=== PATIENT | female | born 1970 | race Two or more races ===

== ENCOUNTER 2024-05-24 17:06 | Inpatient (IN) | payer MEDICAID ==
[~2024-05-24] VITALS: Ht 160 cm; Wt 84.0 kg
[2024-05-24] MEDS: cloNIDine HCL 0.1 MG TAB PO ONE (17:33)
[2024-05-24] MEDS: cloNIDine HCL 0.1 MG TAB ONE (17:33)
[2024-05-24 18:31] LABS: Alanine Aminotransferase 42 U/L (7-40); Albumin 4.7 g/dL (3.2-4.8); Alkaline Phosphatase 83 U/L (46-116); Anion Gap 7 (5-15); Aspartate Aminotransferase 35 U/L (13-40); Basophils # (auto) 0 10 ^3/uL (0-0.2); Basophils % (auto) 0.5 % (0.0-2.0); Bilirubin, Total 1.9 mg/dL (0.2-1.0); Blood Urea Nitrogen 9 mg/dL (9-23); Calcium 9.8 mg/dL (8.7-10.4); Carbon Dioxide 28 mmol/L (20-31); Chloride 106 mmol/L (98-107); Eosinophils # (auto) 0 10 ^3/uL (0-0.8); Eosinophils % (auto) 0.3 % (0.0-7.0); Glucose 130 mg/dL (74-106); Hematocrit 39.5 % (36.0-46.0); Lipase 33 U/L (12-53); Lymphocytes # (auto) 2.3 10 ^3/uL (0.4-5.4); Lymphocytes % (auto) 31.4 % (10.0-50.0); Mean Corpuscular Hgb Conc. 32.9 g/dL (32.0-36.0); Mean Corpuscular Volume 94.4 fL (80.0-100.0); Monocytes # (auto) 0.5 10 ^3/uL (0-1.3); Monocytes % (auto) 6.9 % (0.0-12.0); Neutrophils # (auto) 4.5 10 ^3/uL (1.6-8.6); Neutrophils % (auto) 60.9 % (37.0-80.0); Nucleated Red Blood Cells % 0.2 %; Platelet Count (auto) 297 10^3/uL (140-450); Potassium 3.3 mmol/L (3.5-5.1); Red Blood Cells 4.19 10^6/uL (4.0-5.20); Red Cell Distribution Width 16.2 % (11.8-14.3); Sodium 141 mmol/L (136-145); Total Protein 7.3 g/dL (5.7-8.2); White Blood Cell 7.4 10^3/uL (4.4-10.8)
[2024-05-24] MEDS: SODIUM CHLORIDE 0.9% 1,000 ML IVB ONE (19:56)
[2024-05-24] MEDS: PROCHLORPERAZINE EDISYLATE 5 MG/ML 2ML VIAL IV ONE (19:59)
[2024-05-24] MEDS: PANTOPRAZOLE 40 MG/10 ML VIAL INJ IV ONE (19:59)
[2024-05-24] MEDS: MORPHINE SULFATE 4 MG/ML SYR/VIAL IV ONE (19:59)
[2024-05-24 20:13] LABS: Urine Bacteria FEW /hpf (None Seen); Urine Blood Negative /uL (Negative); Urine Clarity Clear (Clear); Urine Color Yellow (Yellow); Urine Mucus FEW (None Seen); Urine Protein, UAD 3+ (Negative); Urine Specific Gravity 1.027 (1.001-1.035); Urine Urobilinogen 6 mg/dL (Negative); Urine WBC 3 /hpf (0 - 5)
[2024-05-24] MEDS: ONDANSETRON HCL 4 MG/2 ML VIAL IV ONE (20:36)
[2024-05-24] MEDS ORDERED: HYDROcodone-ACET 5/325MG TAB PO PRN (23:00)
[2024-05-24] MEDS ORDERED: ACETAMINOPHEN 325 MG TAB PO PRN (23:00)
[2024-05-24] MEDS ORDERED: ONDANSETRON HCL 4 MG/2 ML VIAL IV PRN (23:00)
[2024-05-24] MEDS ORDERED: TEMAZEPAM 15 MG CAP PO PRN (23:00)
[2024-05-24] MEDS: POTASSIUM CHL 20 Meq TABLET PO ONE (23:12)
[2024-05-25] VITALS (7 sets, daily range): BP systolic 111–180; BP diastolic 72–117; PULSE 6–76; RESP 16–18; TEMP 97.3–98.1; O2SAT 92–98
[2024-05-25] MEDS ORDERED: hydrALAZINE HCL 20 MG/ML VL IV ONE (03:15)
[2024-05-25 03:34] LABS: Basophils # (auto) 0 10 ^3/uL (0-0.2); Basophils % (auto) 0.4 % (0.0-2.0); Eosinophils # (auto) 0 10 ^3/uL (0-0.8); Eosinophils % (auto) 0.9 % (0.0-7.0); Hematocrit 36.5 % (36.0-46.0); Lymphocytes # (auto) 2.2 10 ^3/uL (0.4-5.4); Lymphocytes % (auto) 43.1 % (10.0-50.0); Mean Corpuscular Hemoglobin 31.7 pg (28.0-32.0); Mean Corpuscular Volume 96.1 fL (80.0-100.0); Monocytes # (auto) 0.5 10 ^3/uL (0-1.3); Monocytes % (auto) 9.1 % (0.0-12.0); Neutrophils # (auto) 2.4 10 ^3/uL (1.6-8.6); Neutrophils % (auto) 46.5 % (37.0-80.0); Nucleated Red Blood Cells % 0.2 %; Platelet Count (auto) 229 10^3/uL (140-450); Red Cell Distribution Width 16.7 % (11.8-14.3); White Blood Cell 5.2 10^3/uL (4.4-10.8)
[2024-05-25 03:52] LABS: Anion Gap 7 (5-15); Carbon Dioxide 30 mmol/L (20-31); Chloride 107 mmol/L (98-107); Potassium 3.5 mmol/L (3.5-5.1); Sodium 144 mmol/L (136-145)
[2024-05-25 03:53] LABS: Calcium 9.3 mg/dL (8.7-10.4)
[2024-05-25 03:58] LABS: BUN/Creatinine Ratio 7.6 (10.0-20.0); Blood Urea Nitrogen 9 mg/dL (9-23); Glucose 89 mg/dL (74-106)
[2024-05-25] MEDS: PANTOPRAZOLE 40 MG TAB PO SCH (06:18)
[2024-05-25] MEDS: cloNIDine HCL 0.1 MG TAB PO PRN (07:08)
[2024-05-25] MEDS ORDERED: ALBU108A5 IN (08:23)
[2024-05-25] MEDS ORDERED: ALLO100T PO (08:23)
[2024-05-25] MEDS ORDERED: ASPI-543 PO (08:23)
[2024-05-25] MEDS ORDERED: CARV6.2517 PO (08:23)
[2024-05-25] MEDS ORDERED: FERR325T24 PO (08:23)
[2024-05-25] MEDS ORDERED: CHLO25TA2 PO (08:23)
[2024-05-25] MEDS ORDERED: ERGO1CAP23 PO (08:23)
[2024-05-25] MEDS ORDERED: ATOR20TA50 PO (08:23)
[2024-05-25] MEDS: CARVEDILOL 3.125 MG TAB PO SCH (09:13)
[2024-05-25] MEDS: ALLOPURINOL 100 MG TAB PO SCH (09:14)
[2024-05-25] MEDS: amLODIPine BESYLATE 5 MG TAB PO SCH (09:14)
[2024-05-25] MEDS ORDERED: AMLO1TAB22 PO (09:28)
[2024-05-25] MEDS: amLODIPine BESYLATE 5 MG TAB PO ONE (15:02)
[2024-05-25] MEDS: BENAZEPRIL HCL 10 MG TAB PO ONE (15:03)
[2024-05-25] MEDS: CHLORTHALIDONE 25 MG TAB PO ONE (15:04)
[2024-05-26] VITALS (7 sets, daily range): BP systolic 118–153; BP diastolic 77–99; PULSE 50–70; RESP 16–20; TEMP 36.7; O2SAT 92–99
[2024-05-26 06:35] LABS: Anion Gap 9 (5-15); Carbon Dioxide 26 mmol/L (20-31); Chloride 106 mmol/L (98-107); Potassium 3.4 mmol/L (3.5-5.1); Sodium 141 mmol/L (136-145)
[2024-05-26 06:36] LABS: Calcium 9.5 mg/dL (8.7-10.4)
[2024-05-26 06:41] LABS: BUN/Creatinine Ratio 6.4 (10.0-20.0); Blood Urea Nitrogen 8 mg/dL (9-23); Glucose 90 mg/dL (74-106)
[2024-05-26] MEDS: POTASSIUM EFFERVESENT TAB 25 MEQ PO ONE (11:27)
[2024-05-26] MEDS: amLODIPine BESYLATE 5 MG TAB PO SCH (11:29)
[2024-05-26] MEDS: BENAZEPRIL HCL 10 MG TAB PO SCH (11:30)
[2024-05-26] MEDS: CHLORTHALIDONE 25 MG TAB PO SCH (11:39)
[2024-05-26 14:21] LABS: Chloride 105 mmol/L (98-107); Sodium 140 mmol/L (136-145)
[2024-05-26 14:22] LABS: Anion Gap 6 (5-15); Carbon Dioxide 29 mmol/L (20-31)
[2024-05-26 14:23] LABS: Calcium 9.6 mg/dL (8.7-10.4)
[2024-05-26 14:27] LABS: BUN/Creatinine Ratio 9.9 (10.0-20.0); Blood Urea Nitrogen 11 mg/dL (9-23); Glucose 96 mg/dL (74-106)
[2024-05-26] MEDS: SODIUM CHLORIDE 0.9% 1,000 ML IV ONE (15:18)
== END 2024-05-26 17:50 | disposition home or self-care (01) | DRG 249 ==
LOC: ER 17:06 → OVERFLOW 23:03 → WEST WING 05-25 05:20
PROVIDERS: ADMIT Nurse Practitioner; ATTEND Student in an Organized Health Care Education/Training Program
DX: K52.9 Noninfective gastroenteritis and colitis, unspecified (principal); N17.0 Acute kidney failure with tubular necrosis; I50.9 Heart failure, unspecified; I11.0 Hypertensive heart disease with heart failure; E87.6 Hypokalemia; E86.0 Dehydration; E78.5 Hyperlipidemia, unspecified; M10.9 Gout, unspecified; R80.9 Proteinuria, unspecified; Z86.73 Personal history of transient ischemic attack (TIA), and cerebral infarction without residual deficits
CPT/HCPCS: 36415; 74176; 76705; 80048; 80053; 81001; 83690; 85025; 93005; 96374; 96375; G0378; J2405; J2470

== ENCOUNTER 2025-07-15 10:25 | Inpatient (IN) | payer MEDICAID ==
[~2025-07-15] VITALS: Ht 162.6 cm; Wt 87.6 kg
[~2025-07-15 10:25] MED LIST: ACET-1753 PO; ALBU108A5 IN; ALLO100T PO; AMLO1TAB22 PO; ASPI-543 PO; ATOR20TA50 PO; CARV6.2517 PO; CHLO25TA2 PO; ERGO1CAP23 PO; FERR325T24 PO; HYDR-4902 PO; IBUP100C38 PO; ONDA4SOL12 PO
[2025-07-15 10:59] LABS: Hematocrit 40.8 % (36.0-46.0); Hemoglobin 13.8 g/dL (12.2-16.2); Mean Corpuscular Hemoglobin 31.1 pg (28.0-32.0); Mean Corpuscular Volume 91.7 fL (80.0-100.0); Nucleated Red Blood Cells % 0.0 %
[2025-07-15 11:02] LABS: Chloride 101 mmol/L (98-107); Sodium 143 mmol/L (136-145)
[2025-07-15 11:03] LABS: Anion Gap 10 (5-15); Calcium 9.9 mg/dL (8.7-10.4)
[2025-07-15 11:04] LABS: Carbon Dioxide 32 mmol/L (20-31); Potassium 3.4 mmol/L (3.5-5.1)
--- NOTE | 2025-07-15 11:05 | DVH ---
CLINICAL HISTORY: HTN TECHNIQUE: Chest 2 views of the chest were obtained. COMPARISON: None FINDINGS: The heart size and pulmonary vasculature are normal. There is a patchy right lower lobe opacity. No pleural effusion is present. IMPRESSION: Patchy right lower lobe opacity, likely atelectasis or infection.
[2025-07-15 11:08] LABS: BUN/Creatinine Ratio 6.0 (10.0-20.0)
[2025-07-15 11:11] LABS: Blood Urea Nitrogen 7 mg/dL (9-23); Glucose 117 mg/dL (74-106)
[2025-07-15 11:32] VITALS: PULSE 95; RESP 17; O2SAT 94
--- NOTE | 2025-07-15 11:52 | ED.PDOC ---
History of Present Illness HPI Comments This is a 55 year-old female who presents to the ED with a chief complaint of L sided head pain since yesterday. Patient reports the pain is sharp, with no known alleviating factors. Patient is currently SAT at 96% on Oxygen, with BP 229/139. Patient has no further complaints at this time and otherwise denies symptoms of dizziness, weakness, slurred speech, blurred vision, or N/V/D. Chief Complaint: High Blood Pressure Time Seen by MD: 11:43 Primary Care Provider: unknown Reviewed Notes: Medications, Allergies Allergies: Coded Allergies: NO KNOWN ALLERGIES (Unverified , 05/24/24) Home Meds Active Scripts Hydrocodone-Acetaminophen (Hydrocodone Bitartrate/AC 5-325 mg) 1 Tab Tab, 1 TAB PO Q6HP PRN for 2 Days, #8 TAB Prov:ELISE CLARK MD 08/16/24 Ondansetron HCl (Ondansetron Hydrochloride) 4 Mg/5 Ml Chloe, 2 MG PO Q6HP PRN for 2 Days, #15 ML Prov:ELISE CLARK MD 08/16/24 Acetaminophen (Acetaminophen Childrens) 160 Mg/5 Ml Chloe, 160 MG PO Q6HP PRN for 3 Days, ML Prov:ELISE CLARK MD 08/16/24 Ibuprofen (Motrin Childrens) 100 Mg Chw, 100 MG PO Q6HP PRN for 3 Days, #12 TAB.CHEW Prov:ELISE CLARK MD 08/16/24 Reported Medications Amlodipine Besylate (Amlodipine Besylate) 5 Mg Tab, 10-20 MG PO DAILY for 30 Days, MG 05/25/24 Albuterol Sulfate (Albuterol Sulfate Hfa) 108 Mcg/Act Aer, 200 MCG IN, AER 05/25/24 Atorvastatin Calcium (ATORVASTATIN CALCIUM) 20 Mg Tab, 1 TAB PO DAILY, #30 TAB 5 Refills 05/25/24 Ergocalciferol (VITAMIN D 98401 UNIT) 50,000 [place], [address] UNIT PO QWEEKLY, CAP 05/25/24 Carvedilol (Coreg) 6.25 Mg Tab, 1 TAB PO DAILY, #180 TAB 1 Refill 05/25/24 Allopurinol (Allopurinol) 100 Mg Tab, 100 MG PO DAILY for 30 Days, MG 05/25/24 Ferrous Sulfate (Ferrous Sulfate) 325 Mg Tab, 325 MG PO DAILY for 30 Days, MG 05/25/24 Aspirin (Aspir-Low) 81 Mg Tab, 81 MG PO DAILY for 30 Days, MG 05/25/24 Chlorthalidone (Chlorthalidone) 25 Mg Tab, 25 MG PO DAILY, TAB 05/25/24 Information Source: Patient Mode of Arrival: Ambulatory Severity: Moderate Timing: Days Duration: Since onset Past Medical History PAST MEDICAL HISTORY: CHF, HTN, TIA Surgical History: Denies all surgeries 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 Family History Family History: Reviewed,noncontributory to illness Social History Smoker: Non-Smoker Alcohol: Rarely Drugs: Marijuana Lives In: Home Constitutional: denies: chills, diaphoresis, fatigue, fever, malaise, sweats, weakness, others EENTM: denies: blurred vision, double vision, ear bleeding, ear discharge, ear drainage, ear pain, ear ringing, eye pain, eye redness, hearing loss, mouth pain, mouth swelling, nasal discharge, nose bleeding, nose congestion, nose pain, photophobia, tearing, throat pain, throat swelling, voice changes, others Respiratory: denies: cough, hemoptysis, orthopnea, SOB at rest, shortness of breath, SOB with excertion, stridor, wheezing, others Cardiovascular: denies: chest pain, dizzy spells, diaphoresis, Dyspnea on exertion, edema, irregular heart beat, left arm pain, lightheadedness, palpitations, PND, syncope, others Gastrointestinal: denies: abdomen distended, abdominal pain, blood streaked bowels, constipated, diarrhea, dysphagia, difficulty swallowing, hematemesis, melena, nausea, poor appetite, poor fluid intake, rectal bleeding, rectal pain, vomiting, others Genitourinary: denies: abnormal vagina bleeding, burning, dyspareunia, dysuria, flank pain, frequency, hematuria, incontinence, pain, , vagina discharge, urgency, others Neurological: reports: headache; denies: dizziness, fainting, left sided numbness, left sided weakness, numbness, paresthesia, pre-existing deficit, right sided numbness, right sided weakness, seizure, speech problems, tingling, tremors, weakness, others Musculoskeletal: denies: back pain, gout, joint pain, joint swelling, muscle pain, muscle stiffness, neck pain, others Integumetry: denies: bruises, change in color, change in hair/nails, dryness, laceration, lesions, lumps, rash, wounds, others Allergic/Immunocompromised: denies: Difficulty Healing, Frequent Infections, Hives, Itching, others Hematologic/Lymphatic: denies: anemia, blood clots, easy bleeding, easy bruising, swollen glands, others Endocrine: denies: excessive hunger, excessive sweating, excessive thirst, excessive urination, flushing, intolerance to cold, intolerance to heat, unexplained weight gain, unexplained weight loss, others Psychiatric: denies: anxiety, bipolar disorder, depression, hopeless, panic disorder, schizophrenia, sleepless, suicidal, others All Other Systems: Reviewed and Negative Physical Exam General Appearance: Moderate Distress HEENT: Normal ENT Inspection, Pharynx Normal, TMs Normal Neck: Full Range of Motion, Non-Tender, Normal, Normal Inspection Respiratory: Other (Coarse breath sounds) Cardiovascular: No Edema, No JVD, No Murmur, No Gallop, Normal Peripheral Pulses, Regular Rate/Rhythm Breast Exam: Deferred Gastrointestinal: No Organomegaly, Non Tender, No Pulsatile Mass, Normal Bowel Sounds, Soft Genitalia: Deferred Pelvic: Deferred Rectal: Deferred Extremities: No calf tenderness, Normal capillary refill, Normal inspection, Normal range of motion, Non-tender, No pedal edema Musculoskeletal : Apperance: Normal Neurologic: Alert, pick remover II-XII nml as Tested, No Motor Deficits, Normal Affect, Normal Mood, No Sensory Deficits Cerebellar Function: NOT DONE Reflexes: NOT DONE Skin: Dry, Normal Color, Warm Peripheral Pulses: 3+ Radial (R), 3+ Radial (L) Lymphatic: No Adenopathy Was a procedure done? Was a procedure done?: No Differential Dx Considerations may include: Herpetic neuralgia Electrolyte imbalance X-Ray, Labs, Meds, VS Vital Signs Date Time Temp Pulse Resp B/P (MAP) Pulse Ox O2 Delivery O2 Flow Rate FiO2 07/15/25 16:01 61 21 164/98 (120) 100 07/15/25 15:20 67 11 183/100 07/15/25 15:00 98.1 62 16 187/104 99 3.0 32 98.1 07/15/25 15:00 59 24 182/102 (128) 100 07/15/25 15:00 83 07/15/25 14:56 14 98 Nasal Cannula* 3 32 07/15/25 14:01 65 27 187/104 (131) 100 07/15/25 13:01 76 27 197/112 (140) 10 07/15/25 12:14 210/134 07/15/25 12:01 83 17 189/117 (141) 98 07/15/25 11:32 98.0 95 17 216/132 (160) 94 98.0 07/15/25 11:32 95 17 94 Nasal Cannula* 2 28 07/15/25 11:32 95 216/132 (160) 92 07/15/25 10:35 88 07/15/25 10:27 98.1 95 18 229/139 93 98.1 Lab Test 07/15/25 16:57 07/15/25 10:47 Range/Units Urine Creatinine 137.05 H 30.0-125.0 mg/dL Urine Sodium 162 40-220 mmol/L White Blood Count 8.3 4.4-10.8 10^3/uL Red Blood Count 4.45 4.0-5.20 10^6/uL Hemoglobin 13.8 12.2-16.2 g/dL Hematocrit 40.8 36.0-46.0 % Mean Corpuscular Volume 91.7 80.0-100.0 fL Mean Corpuscular Hemoglobin 31.1 28.0-32.0 pg Mean Corpuscular Hemoglobin Concent 33.9 32.0-36.0 g/dL Red Cell Distribution Width 14.8 H 11.8-14.3 % Platelet Count 254 140-450 10^3/uL Mean Platelet Volume 7.1 6.9-10.8 fL Neutrophils (%) (Auto) 73.8 37.0-80.0 % Lymphocytes (%) (Auto) 18.1 10.0-50.0 % Monocytes (%) (Auto) 5.7 0.0-12.0 % Eosinophils (%) (Auto) 1.9 0.0-7.0 % Basophils (%) (Auto) 0.5 0.0-2.0 % Neutrophils # (Auto) 6.1 1.6-8.6 10 ^3/uL Lymphocytes # (Auto) 1.5 0.4-5.4 10 ^3/uL Monocytes # (Auto) 0.5 0-1.3 10 ^3/uL Eosinophils # (Auto) 0.2 0-0.8 10 ^3/uL Basophils # (Auto) 0 0-0.2 10 ^3/uL Nucleated Red Blood Cells 0.0 % Sodium Level 143 136-145 mmol/L Potassium Level 3.4 L 3.5-5.1 mmol/L Chloride Level 101 98-107 mmol/L Carbon Dioxide Level 32 H 20-31 mmol/L Anion Gap 10 5-15 Blood Urea Nitrogen 7 L 9-23 mg/dL Creatinine 1.17 H 0.550-1.02 mg/dL Glomerular Filtration Rate Calc 54 >90 mL/min BUN/Creatinine Ratio 6.0 L 10.0-20.0 Serum Glucose 117 H 74-106 mg/dL Calcium Level 9.9 8.7-10.4 mg/dL Phosphorus Level 3.4 2.4-5.1 mg/dL Magnesium Level 2.2 1.6-2.6 mg/dL Troponin I High Sensitivity 28 </=34 ng/L Current Medications Medications (Trade) Dose Ordered Sig/Danny Route Start Time Stop Time Status Last Admin Clonidine HCl (Catapres Tablet) 0.2 mg ONCE ONCE PO 07/15/25 10:45 07/15/25 10:46 DC 07/15/25 12:14 Hydromorphone HCl (Dilaudid Injection) 1 mg ONCE ONCE IV 07/15/25 12:15 07/15/25 12:17 DC 07/15/25 15:20 Ondansetron HCl (Zofran) 4 mg ONCE ONCE IV 07/15/25 12:15 07/15/25 12:17 DC 07/15/25 15:21 Ceftriaxone Sodium 50 ml @ 100 mls/hr ONCE ONCE IV 07/15/25 14:45 07/15/25 15:14 DC 07/15/25 15:23 Azithromycin 250 ml @ 125 mls/hr ONCE ONCE IV 07/15/25 14:45 07/15/25 16:44 DC 07/15/25 16:46 Albuterol (Ventolin Medneb) 2.5 mg ONCE ONCE NEB 07/15/25 14:45 07/15/25 14:49 DC 07/15/25 14:55 Ipratropium Nickerson (Atrovent Medneb) 0.5 mg ONCE ONCE NEB 07/15/25 14:45 07/15/25 14:49 DC 07/15/25 14:55 Potassium Chloride (Klor-Con Tablet) 40 meq ONCE ONCE PO 07/15/25 14:45 07/15/25 14:49 DC 07/15/25 15:23 Patient alert. Complaining of headache. Mostly in the temporal region. Vitals stable. Answering questions. Blood pressure elevated. Was given clonidine. She continues to have headache. Wound in the left conjunctiva. Herpes lesions extending. She had chicken pox. Potassium slightly low. Was given potassium. Explained to the patient. Continue monitoring. Time of 1ST Reevaluation: 12:26 Reevaluation 1ST: Unchanged Patient Education/Counseling: Diagnosis, Treatment Family Education/Counseling: No Family Present SEPSIS Sepsis Screen Date sepsis recognized/suspect: Jul 15, 2025 Time Sepsis recognized/suspect: 1027 Recent Procedure: No On Antibiotic Therapy: No Respiratory Rate >20: No Heart Rate >90: Yes Temp<36 C (96.8 F) or >38.3 C: No SBP <90 or MAP <65 mmHG: No New Acute Mental Status Change: No Is the patient on CPAP, BIPAP,: No Physician Orders Chest Two Views Routine (07/15/25 10:32) Electrocardigram (07/15/25 10:32) Head Without Contrast (07/15/25 12:15) Hydromorphone Injection (Dilaudid Inject (07/15/25 14:45) Amlodipine Tablet (Norvasc Tablet) (07/16/25 10:00) Aspirin Enteric Coated Tablet (Ecotrin E (07/16/25 10:00) Atorvastatin (Lipitor) (07/16/25 10:00) Ergocalciferol (Vitamin D 50,000 Unit) (07/15/25 15:00) Ferrous Sulfate Tablet (07/16/25 10:00) Ceftriaxone 1gm/50ml (Rocephin) (07/16/25 09:00) Azithromycin 500mg/250ml (Zithromax 500m (07/16/25 10:00) Albuterol Medneb (Ventolin Medneb) (07/15/25 14:45) Ipratropium Medneb (Atrovent Medneb) (07/15/25 14:45) Cont Med Neb Intial Tx (07/15/25 14:39) Incentive Spirometry Q 1hr (07/15/25 14:39) Carvedilol Tablet (Coreg Tablet) (07/15/25 22:00) Neuro Checks Q2hrs Q4HR (07/15/25 14:58) Hydralazine Injection (Apresoline Inject (07/15/25 15:00) Admit (07/15/25 17:53) Oxygen By Nasal Cannula (07/15/25 17:53) Nitroglycerin Sublingual (Ntrostat Subli (07/15/25 18:00) Morphine Sulfate Injection (07/15/25 18:00) Stat Ekg For Chest Pain (07/15/25 17:53) Notify Of Changes From Base (07/15/25 17:53) Special Education Professor For 24 Hours (07/15/25 17:53) Emergency Dysrhythmia Protocol (07/15/25 17:53) Rhythm Strips Once Every Shift (07/15/25 17:53) Vital Signs Date Time Temp Pulse Resp B/P (MAP) Pulse Ox O2 Delivery O2 Flow Rate FiO2 07/15/25 16:01 61 21 164/98 (120) 100 07/15/25 15:20 67 11 183/100 07/15/25 15:00 98.1 62 16 187/104 99 3.0 32 98.1 07/15/25 15:00 59 24 182/102 (128) 100 07/15/25 15:00 83 07/15/25 14:56 14 98 Nasal Cannula* 3 32 07/15/25 14:01 65 27 187/104 (131) 100 07/15/25 13:01 76 27 197/112 (140) 10 07/15/25 12:14 210/134 07/15/25 12:01 83 17 189/117 (141) 98 07/15/25 11:32 98.0 95 17 216/132 (160) 94 98.0 07/15/25 11:32 95 17 94 Nasal Cannula* 2 28 07/15/25 11:32 95 216/132 (160) 92 07/15/25 10:35 88 07/15/25 10:27 98.1 95 18 229/139 93 98.1 Laboratory Tests Test 07/15/25 10:47 White Blood Count 8.3 10^3/uL (4.4-10.8) Medications Medications Dose Ordered Sig/Danny Route Start Time Stop Time Status Last Admin Dose Admin Albuterol 2.5 mg ONCE ONCE NEB 07/15/25 14:45 07/15/25 14:49 DC 07/15/25 14:55 Azithromycin 250 ml @ 125 mls/hr ONCE ONCE IV 07/15/25 14:45 07/15/25 16:44 DC 07/15/25 16:46 Ceftriaxone Sodium 50 ml @ 100 mls/hr ONCE ONCE IV 07/15/25 14:45 07/15/25 15:14 DC 07/15/25 15:23 Clonidine HCl 0.2 mg ONCE ONCE PO 07/15/25 10:45 07/15/25 10:46 DC 07/15/25 12:14 Hydromorphone HCl 1 mg ONCE ONCE IV 07/15/25 12:15 07/15/25 12:17 DC 07/15/25 15:20 Ipratropium Nickerson 0.5 mg ONCE ONCE NEB 07/15/25 14:45 07/15/25 14:49 DC 07/15/25 14:55 Ondansetron HCl 4 mg ONCE ONCE IV 07/15/25 12:15 07/15/25 12:17 DC 07/15/25 15:21 Potassium Chloride 40 meq ONCE ONCE PO 07/15/25 14:45 07/15/25 14:49 DC 07/15/25 15:23 Departure 1 Departure Time of Disposition: 14:00 Impression: Primary Impression: Neuralgia, post-herpetic Additional Impressions: Hypertensive emergency Acute respiratory distress Disposition: ADMITTED INPATIENT Admit to: Med Surg Condition: Guarded Critical Care Note Critical Care Time?: Yes (90 min-critical care time only) Stability Stability form required: No Heart Score Heart Score: Heart Score Response (Comments) Value History N/A 0 EKG N/A 0 Age N/A 0 Risk Factors N/A 0 Troponin N/A 0 Total 0 I personally scribed for ARTURO ENGLAND MD ([email or web address]) on 07/15/25 at 11:52. Electronically submitted by Lore Miramontes ([employer] ARTURO ENGLAND MD Jul 15, 2025 11:52
--- NOTE | 2025-07-15 12:55 | DVH ---
CLINICAL HISTORY: headache TECHNIQUE: Helical scanning was performed of the head from the skull base to the vertex. Multiplanar reconstructions were performed. This exam was performed according to our departmental dose optimization program. Up-to-date CT equipment and radiation dose reduction techniques are utilized as appropriate. CTDI 59 DLP 999 COMPARISON: None FINDINGS: There is no evidence for acute intracranial hemorrhage, acute ischemic changes, mass, mass effect, or extra-axial fluid collection. There is no hydrocephalus or midline shift. There is no effacement of the cerebral sulci and basal subarachnoid cisterns. The tolentino-white matter differentiation is well maintained. There are right parietal cortical calcification, which is a nonspecific finding, but most compatible with prior neurocysticercosis infection. The imaged paranasal sinuses are clear. IMPRESSION: NO ACUTE INTRACRANIAL ABNORMALITY SEEN.
--- NOTE | 2025-07-15 14:28 | DVHHP2 ---
History of Present Illness Reason for Visit: headache History of Present Illness 55-year-old female with past medical history of chronic dry skin condition, congestive heart failure (CHF), hypertension, transient ischemic attack (TIA), gout, hyperlipidemia, and chronic kidney disease (CKD) since 2006, presents to the ED with complaints of intractable left-sided head pain that began yesterday. She also endorses new onset cough and nasal congestion, and believes she is developing a cold. She denies fever, productive cough, or phlegm. The headache is described as a constant pressure with needle-like pain on the left side of her head. She denies any visual disturbances, weakness, numbness, thunderclap quality, or neck stiffness. Of note, she has been noncompliant with her blood pressure medications over the past two weeks due to running out of prescriptions. Her regimen includes , amlodipine 10 mg/lisinopril, and carvedilol 6.25 mg BID. In the ED, she received Zofran, Dilaudid, and clonidine. Labs revealed normal CBC, potassium of 3.4, creatinine 1.17, glucose 117. CT head was unremarkable. Chest X-ray showed right lower lobe changes concerning for atelectasis vs early pneumonia. Given headache, elevated blood pressure, and signs of respiratory infection, she will be admitted for hypertensive emergency, re-initiation of home antihypertensives, IV pain control, and empiric antibiotics for possible pneumonia. Patient reports regular marijuana use. Past Medical History see hpi above Past Surgical History see hpi above Family History Reviewed, non-contributory to the management of this case. Past Social History Patient does smoke marijuana but denies drug or alcohol use Review of Systems Constitutional: No: Fever, Chills, Sweats, Weakness, Malaise, Other Eyes: No: Pain, Vision change, Conjunctivae inflammation, Eyelid inflammation, Other, Redness ENT: No: Ear pain, Ear discharge, Nose pain, Nose discharge, Nose congestion, Mouth pain, Mouth swelling, Throat pain, Throat swelling, Other Respiratory: No: Cough, Dry, Shortness of breath, SOB with excertion, Wheezing, Hemoptysis, Pleuritic Pain, Sputum, Wheezing, Other Cardiovascular: No: Chest Pain, Palpitations, Orthopnea, Paroxysmal Noc. Dyspnea, Edema, Lt Headedness, Other Gastrointestinal: No: Nausea, Vomiting, Abdominal Pain, Diarrhea, Constipation, Melena, Hematochezia, Other Genitourinary: No Dysuria, No Frequency, No Incontinence, No Hematuria, No Retention, No Other Musculoskeletal: No: other, neck pain, shoulder pain, arm pain, back pain, hand pain, leg pain, foot pain Skin: No: Rash, Lesions, Jaundice, Bruising, Other Neurological: Other (headache ); No: Weakness, Numbness, Incoordination, Change in speech, Confusion, Seizures Allergies: Coded Allergies: NO KNOWN ALLERGIES (Unverified , 05/24/24) Exam Vital Signs Vital Signs Date Time Temp Pulse Resp B/P (MAP) Pulse Ox O2 Delivery O2 Flow Rate FiO2 07/15/25 12:14 210/134 07/15/25 10:35 88 07/15/25 10:27 98.1 18 93 98.1 General Appearance: Alert, Oriented X3, Cooperative, No acute distress HEENT: Atraumatic, PERRLA, EOMI, Mucous membr. moist/pink Respiratory: Clear to auscultation, Normal air movement Cardiovascular: Regular rate, Normal S1, Normal S2, No murmurs Abdominal: Normal bowel sounds, Soft, No tenderness, No hepatospenomegaly, No masses Extremities: No clubbing, No cyanosis, No edema, Normal pulses Skin: No rashes (peeling dry skin history) Neuro: Normal gait, Normal speech, Strength at 5/5 X4 ext, Normal tone, Sensation intact, Cranial nerves 3-12 NL Psych/Mental Status: Mental status NL, Mood NL Labs/Xrays CT scan of the brain unremarkable Chest x-ray shows right lower lobe questionable atelectasis vs infection I reviewed labs, imaging CT scan abdomen pelvis, EKG and all diagnostic studies on this patient from ED records and the medical chart Labs Test 07/15/25 10:47 Range/Units White Blood Count 8.3 4.4-10.8 10^3/uL Red Blood Count 4.45 4.0-5.20 10^6/uL Hemoglobin 13.8 12.2-16.2 g/dL Hematocrit 40.8 36.0-46.0 % Mean Corpuscular Volume 91.7 80.0-100.0 fL Mean Corpuscular Hemoglobin 31.1 28.0-32.0 pg Mean Corpuscular Hemoglobin Concent 33.9 32.0-36.0 g/dL Red Cell Distribution Width 14.8 H 11.8-14.3 % Platelet Count 254 140-450 10^3/uL Mean Platelet Volume 7.1 6.9-10.8 fL Neutrophils (%) (Auto) 73.8 37.0-80.0 % Lymphocytes (%) (Auto) 18.1 10.0-50.0 % Monocytes (%) (Auto) 5.7 0.0-12.0 % Eosinophils (%) (Auto) 1.9 0.0-7.0 % Basophils (%) (Auto) 0.5 0.0-2.0 % Neutrophils # (Auto) 6.1 1.6-8.6 10 ^3/uL Lymphocytes # (Auto) 1.5 0.4-5.4 10 ^3/uL Monocytes # (Auto) 0.5 0-1.3 10 ^3/uL Eosinophils # (Auto) 0.2 0-0.8 10 ^3/uL Basophils # (Auto) 0 0-0.2 10 ^3/uL Nucleated Red Blood Cells 0.0 % Sodium Level 143 136-145 mmol/L Potassium Level 3.4 L 3.5-5.1 mmol/L Chloride Level 101 98-107 mmol/L Carbon Dioxide Level 32 H 20-31 mmol/L Anion Gap 10 5-15 Blood Urea Nitrogen 7 L 9-23 mg/dL Creatinine 1.17 H 0.550-1.02 mg/dL Glomerular Filtration Rate Calc 54 >90 mL/min BUN/Creatinine Ratio 6.0 L 10.0-20.0 Serum Glucose 117 H 74-106 mg/dL Calcium Level 9.9 8.7-10.4 mg/dL Troponin I High Sensitivity 28 </=34 ng/L SEPSIS Sepsis Screen Date sepsis recognized/suspect: Jul 15, 2025 Time Sepsis recognized/suspect: 1028 Recent Procedure: No On Antibiotic Therapy: No Respiratory Rate >20: No Heart Rate >90: Yes Temp<36 C (96.8 F) or >38.3 C: No SBP <90 or MAP <65 mmHG: No New Acute Mental Status Change: No Is the patient on CPAP, BIPAP,: No Physician Orders Chest Two Views Routine (07/15/25 10:32) Electrocardigram (07/15/25 10:32) Head Without Contrast (07/15/25 12:15) Vital Signs Date Time Temp Pulse Resp B/P (MAP) Pulse Ox O2 Delivery O2 Flow Rate FiO2 07/15/25 12:14 210/134 07/15/25 10:35 88 07/15/25 10:27 98.1 95 18 229/139 93 98.1 Laboratory Tests Test 07/15/25 10:47 White Blood Count 8.3 10^3/uL (4.4-10.8) Medications Medications Dose Ordered Sig/Danny Route Start Time Stop Time Status Last Admin Dose Admin Clonidine HCl 0.2 mg ONCE ONCE PO 07/15/25 10:45 07/15/25 10:46 DC 07/15/25 12:14 0.2 MG Assessment/Plan Assessment/Plan 55-year-old female with headache, medication noncompliance, elevated BP, and pulmonary infiltrate. Admit for hypertensive urgency and possible pneumonia. acute Hypertensive emergency with intractable headache likely from not having medication CT brain negative, no focal sign Restart home antihypertensive regimen (Amlodipine/lisinopril, Carvedilol) hydralazine PRN if SBP >160 Monitor BP Q4h Neuro checks Q4h no need for MRI unless symptoms worsen ordered diluadid prn pain acute intractable Headache, new onset, constant pressure, non-thunderclap ct scan brain negative Pain control with PRN dilaudid prn No signs of meningitis or neurologic deficits Continue to monitor neurologic exam acute community acquired PNA (right lower lobe changes on X-ray) Start empiric antibiotics: Ceftriaxone + Azithromycin Monitor for fevers, respiratory status Encourage incentive spirometry ordered duoneb as needed for sob o2 to keep sats >92% Medication noncompliance due to refill lapse Reinforce importance of medication adherence will need refills on discharge Chronic kidney disease Monitor BUN/Cr Avoid nephrotoxic agents Maintain adequate hydration ordered urine sodium and crea to check fena chronic problem list Congestive heart failure no exacerbation Hypertension CKD Gout Hyperlipidemia TIA Marijuana use Chronic dry skin FEN / PPx Fluids: IV NS at 75 mL/hr gentle hydration Electrolytes: Replete potassium Nutrition: Regular diet as tolerated DVT Prophylaxis: SCDs GI Prophylaxis: protonix Disposition Admit to internal medicine for blood pressure control, headache management, and treatment of presumed pneumonia. Monitor neuro status closely. Resume home antihypertensive therapy and treat with IV antibiotics. Plan discussed with: Patient Date of Service: Jul 15, 2025 Billing Provider: ALFREDA HEARD DNP Common Visit Codes: [id number] INP/OBS CARE (HIGH) ALFREDA HEARD DNP Jul 15, 2025 14:28
[2025-07-15] MEDS: ALBUTEROL SULF 2.5 MG/0.5ML(0.5%) NEB SOLN NEB ONE (14:55)
[2025-07-15] MEDS: IPRATROPIUM BROM 0.5 MG/2.5ML INH SOL NEB ONE (14:55)
[2025-07-15 15:00] VITALS: BP 187/104; PULSE 62; RESP 16; TEMP 98.1; O2SAT 99
[2025-07-15 15:15] LABS: Magnesium 2.2 mg/dL (1.6-2.6)
[2025-07-15] MEDS: HYDROmorphone HCL 2 MG/ML VL/or syr IV ONE (15:20)
[2025-07-15] MEDS: ONDANSETRON HCL 4 MG/2 ML VIAL IV ONE (15:21)
[2025-07-15] MEDS: POTASSIUM CHL 20 Meq TABLET PO ONE (15:23)
[2025-07-15] MEDS: AZITHROMYCIN 500MG/250ML 250 ML IV ONE (16:46)
[2025-07-15] MEDS ORDERED: NITROGLYCERIN 0.4 MG SL TAB SL PRN (18:00)
[2025-07-15] MEDS ORDERED: MORPHINE SULFATE INJ 2 MG/ml SYRG IV PRN (18:00)
[2025-07-15] MEDS: hydrALAZINE HCL 20 MG/ML VL IV PRN (18:23)
[2025-07-15 19:30] VITALS: PULSE 89; RESP 22
[2025-07-15] MEDS: HYDROmorphone HCL 2 MG/ML VL/or syr IV PRN (20:52)
[2025-07-15 21:08] VITALS: BP 167/100; PULSE 86; RESP 18; TEMP 98.6; O2SAT 98
[2025-07-15] MEDS: CARVEDILOL 3.125 MG TAB PO SCH (22:00)
[2025-07-16] VITALS (9 sets, daily range): BP systolic 134–197; BP diastolic 65–118; PULSE 70–85; RESP 16–20; TEMP 97.8–98.5; O2SAT 96–99
[2025-07-16] MEDS: ASPirin-EC 81 mg tab PO SCH (09:33)
[2025-07-16] MEDS: FERROUS SULFATE 325mg EC TAB PO SCH (09:33)
[2025-07-16] MEDS: ATORVASTATIN 20 MG TAB PO SCH (09:33)
[2025-07-16] MEDS: AZITHROMYCIN 500MG/250ML 250 ML IV SCH (11:09)
--- NOTE | 2025-07-16 12:22 | DVHPN2 ---
Subjective The patient is seen and examined at bedside. Still complain of headache. Tylenol does help. Reviewed: Care Plan, H&P, Labs, Medications, Previous Orders, Radiology Changes from previous H/P or p: No Changes Eyes: No Pain, No Vision change, No Conjunctivae inflammation, No Eyelid inflammation, No Other, No Redness ENT: No Ear pain, No Ear discharge, No Nose pain, No Nose discharge, No Nose congestion, No Mouth pain, No Mouth swelling, No Throat pain, No Throat swelling, No Other Cardiovascular: No Chest Pain, No Palpitations, No Orthopnea, No Paroxysmal Noc. Dyspnea, No Edema, No Lt Headedness, No Other Respiratory: No Cough, No Dry, No Shortness of breath, No SOB with excertion, No Wheezing, No Hemoptysis, No Pleuritic Pain, No Sputum, No Other Gastrointestinal: No Nausea, No Vomiting, No Abdominal Pain, No Diarrhea, No Constipation, No Melena, No Hematochezia, No Other Genitourinary: No Dysuria, No Frequency, No Incontinence, No Hematuria, No Retention, No Other Musculoskeletal: No other, No neck pain, No shoulder pain, No arm pain, No back pain, No hand pain, No leg pain, No foot pain Skin: No Rash, No Lesions, No Jaundice, No Bruising, No Other Objective Vitals Vital Signs Date Time Temp Pulse Resp B/P (MAP) Pulse Ox O2 Delivery O2 Flow Rate FiO2 07/16/25 10:33 72 157/84 07/16/25 09:43 18 07/16/25 06:53 98 Nasal Cannula 3.0 07/16/25 06:53 32 07/16/25 05:00 97.8 97.8 Intake/Output Intake and Output 07/16/25 07:00 Intake Total 300 ml Balance 300 ml Intake Oral 0 ml IV Total 300 ml General Appearance: Alert, Oriented X3, Cooperative, No acute distress HEENT: Atraumatic, PERRLA, EOMI, Mucous membr. moist/pink Lungs: Clear to auscultation, Normal air movement Cardiovascular: Regular rate, Normal S1, Normal S2, No murmurs, Gallops, Rubs Abdomen: Normal bowel sounds, Soft, No tenderness Neuro: Cranial nerves 3-12 NL Psych/Mental Status: Mental status NL Medications Current Medications Medications Dose Ordered Sig/Danny Route Start Time Stop Time Status Last Admin Dose Admin Hydromorphone HCl 0.5 mg Q4HPRN PRN IV 07/15/25 14:45 07/16/25 09:43 0.5 MG Amlodipine Besylate 10 mg DAILY PO 07/16/25 10:00 07/16/25 09:33 10 MG Aspirin 81 mg DAILY PO 07/16/25 10:00 07/16/25 09:33 81 MG Atorvastatin Calcium 20 mg DAILY PO 07/16/25 10:00 07/16/25 09:33 20 MG Ergocalciferol 50,000 unit QWEEKLY PO 07/15/25 15:00 Carvedilol 6.25 mg BID PO 07/15/25 22:00 07/16/25 09:33 6.25 MG Ferrous Sulfate 325 mg DAILY PO 07/16/25 10:00 07/16/25 09:33 325 MG Ceftriaxone Sodium 50 ml @ 100 mls/hr DAILY@09 IV 07/16/25 09:00 07/16/25 09:32 100 MLS/HR Azithromycin 250 ml @ 125 mls/hr DAILY IV 07/16/25 10:00 07/16/25 11:09 125 MLS/HR Albuterol 2.5 mg Q6HPRN PRN NEB 07/15/25 14:45 Ipratropium [place] 0.5 mg Q4HPRN PRN NEB 07/15/25 14:45 Hydralazine HCl 10 mg Q6HP PRN IV 07/15/25 15:00 07/16/25 03:37 10 MG Nitroglycerin 0.4 mg Q5MINP PRN SL 07/15/25 18:00 Morphine Sulfate 2 mg Q30M PRN IV 07/15/25 18:00 Laboratory Results Laboratory Tests 07/15/25 10:47 Urinalysis Test 07/15/25 16:57 Urine Creatinine 137.05 mg/dL (30.0-125.0) H Urine Sodium 162 mmol/L (40-220) Labs and/or images reviewed: Labs reviewed by me Assessment/Plan Assessment/Plan acute Hypertensive emergency with intractable headache likely from not having medication CT brain negative, no focal sign Restart home antihypertensive regimen (Amlodipine/lisinopril, Carvedilol) hydralazine PRN if SBP >160 Monitor BP Q4h Neuro checks Q4h no need for MRI unless symptoms worsen ordered dilaudid prn pain acute intractable Headache, new onset, constant pressure, non-thunderclap ct scan brain negative Pain control with PRN dilaudid prn No signs of meningitis or neurologic deficits Continue to monitor neurologic exam acute community acquired PNA (right lower lobe changes on X-ray) Start empiric antibiotics: Ceftriaxone + Azithromycin Monitor for fevers, respiratory status Encourage incentive spirometry ordered duoneb as needed for sob o2 to keep sats >92% Medication noncompliance due to refill lapse Reinforce importance of medication adherence will need refills on discharge Chronic kidney disease Monitor BUN/Cr Avoid nephrotoxic agents Maintain adequate hydration ordered urine sodium and crea to check fena Congestive heart failure no exacerbation Hypertension CKD Gout Hyperlipidemia TIA Marijuana use Chronic dry skin Continuing current management continuing to monitor blood pressure. This medical document was created using an electronic medical record system with [employer] computerized dictation system. Although this document has been carefully reviewed, there may still be some phonetic and typographical errors. These areas are purely typographical due to imperfections of the software programs, and do not reflect any compromise in the patient's medical care. Plan discussed with: Patient My Orders Orders - LANDEN GAYTAN MD Procedure Category Date Status Time Cardiac DIET 07/16/25 Transmitted Diet-2gna,Lofat,Lochol Lunch Date of Service: Jul 16, 2025 Billing Provider: LANDEN GAYTAN MD Common Visit Codes: [id number] INP/OBS CARE(HIGH) LANDEN GAYTAN MD Jul 16, 2025 12:22
--- NOTE | 2025-07-16 20:19 | ECG ---
[facility] Test Date: 2025-07-15 Test Time: 10:35:30 Pat Name: PETE TAVARES Department: ED Room: [address] [place] [address] Gender: F [employer]: ZULY : 1970 Requested By: ARTURO ENGLAND Order Number: [id number] Reading MD: Jaden Elizondo Measurements Intervals [place] Rate: 88 P: 56 MD: 151 QRS: 85 QRSD: 104 T: 266 QT: 406 QTc: 492 Interpretive Statements Sinus rhythm Probable LVH with secondary repol abnrm Borderline prolonged QT interval Electronically Signed On 07-18-2025 15:00:53 PST by Jaden Elizondo Please click the below link to view image of tracing.
[2025-07-16 22:29] LABS: COVID19 ANTIGEN SOFIA FIA NEGATIVE (NEGATIVE)
[2025-07-17] VITALS (13 sets, daily range): BP systolic 147–206; BP diastolic 78–131; PULSE 56–82; RESP 16–18; TEMP 98–98.9; O2SAT 92–100
[2025-07-17] MEDS: hydrALAZINE HCL 20 MG/ML VL IV ONE (09:31)
[2025-07-17] MEDS: ONDANSETRON HCL 4 MG/2 ML VIAL ONE (09:37)
[2025-07-17] MEDS: ONDANSETRON HCL 4 MG/2 ML VIAL IV PRN (09:37)
[2025-07-17 09:50] LABS: Hematocrit 38.7 % (36.0-46.0); Hemoglobin 12.7 g/dL (12.2-16.2); Mean Corpuscular Hemoglobin 30.5 pg (28.0-32.0); Mean Corpuscular Volume 92.7 fL (80.0-100.0); Nucleated Red Blood Cells % 0.1 %
[2025-07-17 10:10] LABS: Anion Gap 6 (5-15); Chloride 99 mmol/L (98-107); Potassium 3.8 mmol/L (3.5-5.1); Sodium 141 mmol/L (136-145)
[2025-07-17 10:11] LABS: Calcium 10.1 mg/dL (8.7-10.4)
[2025-07-17 10:16] LABS: BUN/Creatinine Ratio 10.9 (10.0-20.0); Blood Urea Nitrogen 10 mg/dL (9-23)
[2025-07-17 10:24] LABS: Carbon Dioxide 36 mmol/L (20-31); Glucose 123 mg/dL (74-106)
--- NOTE | 2025-07-17 11:49 | DVHPN2 ---
Subjective The patient is seen and examined at bedside. Still complain of headache. BP elevated up to 200/110. Vomit x 1 Reviewed: Care Plan, H&P, Labs, Medications, Previous Orders, Radiology Changes from previous H/P or p: No Changes Eyes: No Pain, No Vision change, No Conjunctivae inflammation, No Eyelid inflammation, No Other, No Redness ENT: No Ear pain, No Ear discharge, No Nose pain, No Nose discharge, No Nose congestion, No Mouth pain, No Mouth swelling, No Throat pain, No Throat swelling, No Other Cardiovascular: No Chest Pain, No Palpitations, No Orthopnea, No Paroxysmal Noc. Dyspnea, No Edema, No Lt Headedness, No Other Respiratory: No Cough, No Dry, No Shortness of breath, No SOB with excertion, No Wheezing, No Hemoptysis, No Pleuritic Pain, No Sputum, No Other Gastrointestinal: No Nausea, No Vomiting, No Abdominal Pain, No Diarrhea, No Constipation, No Melena, No Hematochezia, No Other Genitourinary: No Dysuria, No Frequency, No Incontinence, No Hematuria, No Retention, No Other Musculoskeletal: No other, No neck pain, No shoulder pain, No arm pain, No back pain, No hand pain, No leg pain, No foot pain Skin: No Rash, No Lesions, No Jaundice, No Bruising, No Other Objective Vitals Vital Signs Date Time Temp Pulse Resp B/P (MAP) Pulse Ox O2 Delivery O2 Flow Rate FiO2 07/17/25 10:53 74 18 175/93 07/17/25 10:17 98 Nasal Cannula* 2 28 07/17/25 09:00 98.0 98.0 Intake/Output Intake and Output 07/17/25 07:00 Intake Total 180 ml Balance 180 ml Intake Oral 180 ml # Voids 2 # Bowel Movements 1 General Appearance: Alert, Oriented X3, Cooperative, No acute distress HEENT: Atraumatic, PERRLA, EOMI, Mucous membr. moist/pink Lungs: Clear to auscultation, Normal air movement Cardiovascular: Regular rate, Normal S1, Normal S2, No murmurs, Gallops, Rubs Abdomen: Normal bowel sounds, Soft, No tenderness Neuro: Cranial nerves 3-12 NL Psych/Mental Status: Mental status NL Medications Current Medications Medications Dose Ordered Sig/Danny Route Start Time Stop Time Status Last Admin Dose Admin Hydromorphone HCl 0.5 mg Q4HPRN PRN IV 07/15/25 14:45 07/17/25 10:53 0.5 MG Amlodipine Besylate 10 mg DAILY PO 07/16/25 10:00 07/17/25 09:41 10 MG Aspirin 81 mg DAILY PO 07/16/25 10:00 07/17/25 09:40 81 MG Atorvastatin Calcium 20 mg DAILY PO 07/16/25 10:00 07/17/25 09:40 20 MG Ergocalciferol 50,000 unit QWEEKLY PO 07/15/25 15:00 Carvedilol 6.25 mg BID PO 07/15/25 22:00 07/17/25 09:41 6.25 MG Ferrous Sulfate 325 mg DAILY PO 07/16/25 10:00 07/17/25 09:40 325 MG Ceftriaxone Sodium 50 ml @ 100 mls/hr DAILY@09 IV 07/16/25 09:00 07/17/25 09:34 100 MLS/HR Azithromycin 250 ml @ 125 mls/hr DAILY IV 07/16/25 10:00 07/17/25 10:24 125 MLS/HR Albuterol 2.5 mg Q6HPRN PRN NEB 07/15/25 14:45 Ipratropium [place] 0.5 mg Q4HPRN PRN NEB 07/15/25 14:45 Hydralazine HCl 10 mg Q6HP PRN IV 07/15/25 15:00 07/17/25 07:06 10 MG Nitroglycerin 0.4 mg Q5MINP PRN SL 07/15/25 18:00 Morphine Sulfate 2 mg Q30M PRN IV 07/15/25 18:00 Ondansetron HCl 4 mg Q6HPRN PRN IV 07/17/25 09:15 07/17/25 09:37 4 MG Laboratory Results Laboratory Tests 07/17/25 09:40 Chemistry Test 07/17/25 09:40 Calcium Level 10.1 mg/dL (8.7-10.4) Urinalysis Test 07/15/25 16:57 Urine Creatinine 137.05 mg/dL (30.0-125.0) H Urine Sodium 162 mmol/L (40-220) Labs and/or images reviewed: Labs reviewed by me Assessment/Plan Assessment/Plan acute Hypertensive emergency with intractable headache likely from not having medication CT brain negative, no focal sign Restart home antihypertensive regimen (Amlodipine/lisinopril, Carvedilol) hydralazine PRN if SBP >160 Monitor BP Q4h Neuro checks Q4h no need for MRI unless symptoms worsen ordered dilaudid prn pain acute intractable Headache, with history of migraine headache. Per patient tylenol #3 will help. new onset, constant pressure, non-thunderclap ct scan brain negative Pain control with PRN dilaudid prn No signs of meningitis or neurologic deficits Continue to monitor neurologic exam acute community acquired PNA (right lower lobe changes on X-ray) Start empiric antibiotics: Ceftriaxone + Azithromycin Monitor for fevers, respiratory status Encourage incentive spirometry ordered duoneb as needed for sob o2 to keep sats >92% Medication noncompliance due to refill lapse Reinforce importance of medication adherence will need refills on discharge Chronic kidney disease Monitor BUN/Cr Avoid nephrotoxic agents Maintain adequate hydration ordered urine sodium and crea to check fena Congestive heart failure no exacerbation Hypertension CKD Gout Hyperlipidemia TIA Marijuana use Chronic dry skin Continuing current management continuing to monitor blood pressure. tylenol with codein for headache I will give another hydralazine 10mg IVP x2. If not improved, will upgrade to ICU for nicardipin drip. I will start toradol 30mg IV q8hPRN for headache. Will add HCTZ and lorsatan in her regiment. Stat repeat CT head to rule out CVA This medical document was created using an electronic medical record system with [employer] direct computerized dictation system. Although this document has been carefully reviewed, there may still be some phonetic and typographical errors. These areas are purely typographical due to imperfections of the software programs, and do not reflect any compromise in the patient's medical care. Plan discussed with: Patient, Other (RN) My Orders Orders - LANDEN GAYTAN MD Procedure Category Date Status Time Cardiac DIET 07/16/25 Transmitted Diet-2gna,Lofat,Lochol Lunch Ondansetron Hcl PHA 07/17/25 In Process (Zofran) 09:15 Losartan Tablet PHA 07/17/25 Transmitted (Cozaar Tablet) 12:00 Date of Service: Jul 17, 2025 Billing Provider: LANDEN GAYTAN MD Common Visit Codes: [id number] INP/OBS CARE(HIGH) LANDEN GAYTAN MD Jul 17, 2025 11:49
[2025-07-17] MEDS: LOSARTAN POTASSIUM 50 MG TAB PO SCH (12:00)
[2025-07-17] MEDS: hydroCHLOROthiazide 25 MG TAB PO SCH (12:34)
[2025-07-17] MEDS: KETOROLAC TROMETH 30 MG/ML 1ML VIAL IV PRN (13:04)
--- NOTE | 2025-07-17 15:19 | DVH ---
EXAM: CT HEAD WITHOUT CONTRAST INDICATION: r/o cva TECHNIQUE: CT of the head without intravenous contrast. Radiation Dose : 1. Head: CT Dose: CTDI volume is 60.14 mGy. Dose-length product is 1064.85 mGy*cm The dose indicators for CT are the volume Computed Tomography (CT) Dose Index (CTDIvol) and the Dose Length Product (DLP), and are measured in units of mGy and mGy-cm, respectively. These indicators are not patient dose, but values generated from the CT scanner acquisition factors. The report includes radiation exposure data for exposures received during this examination. COMPARISON: CT HEAD WITHOUT CONTRAST on DOS: 07/15/25 FINDINGS: There is no evidence of acute infarct, intracranial hemorrhage, extra-axial collection, mass effect, midline shift, herniation or hydrocephalus. The ventricles, sulci and cisterns are age appropriate. The tolentino-white differentiation is intact. The visualized paranasal sinuses and mastoid air cells are clear. The surrounding soft tissues and osseous structures are unremarkable. IMPRESSION: No acute intracranial abnormality. Radiation optimization: All CT scans at this facility use at least one of these dose optimization techniques: automated exposure control mA and/or kV adjustment per patient size (includes targeted exams where dose is matched to clinical indication) or iterative reconstruction.
[2025-07-17] MEDS: ACETAMINOPHEN/CODEINE#3 (300/30mg) TAB PO PRN (18:37)
[2025-07-18] VITALS (14 sets, daily range): BP systolic 139–193; BP diastolic 80–105; PULSE 63–89; RESP 16–20; TEMP 98–98.8; O2SAT 93–100
[2025-07-18 06:18] LABS: Chloride 99 mmol/L (98-107); Sodium 140 mmol/L (136-145)
[2025-07-18 06:19] LABS: Anion Gap 7 (5-15); Calcium 9.8 mg/dL (8.7-10.4)
[2025-07-18 06:24] LABS: BUN/Creatinine Ratio 12.6 (10.0-20.0); Blood Urea Nitrogen 11 mg/dL (9-23); Carbon Dioxide 34 mmol/L (20-31); Glucose 93 mg/dL (74-106); Potassium 3.5 mmol/L (3.5-5.1)
[2025-07-18 06:37] LABS: Hematocrit 38.9 % (36.0-46.0); Hemoglobin 13.1 g/dL (12.2-16.2); Mean Corpuscular Hemoglobin 30.8 pg (28.0-32.0); Mean Corpuscular Volume 91.5 fL (80.0-100.0); Nucleated Red Blood Cells % 0.1 %
[2025-07-18] MEDS ORDERED: CARV-214 OR (14:39)
[2025-07-18] MEDS ORDERED: [UNRECOGNIZED DRUG - CODE] PO (14:39)
--- NOTE | 2025-07-18 14:46 | DVHDS2 ---
Discharge Summary Date of Admission Jul 15, 2025 at 17:53 Date of Discharge: Jul 18, 2025 Admitting Diagnosis Hypertensive crisis Labs/Diagnostic Data: Laboratory Results Test 07/18/25 05:51 07/16/25 21:40 07/15/25 16:57 07/15/25 10:47 White Blood Count 5.9 10^3/uL (4.4-10.8) Red Blood Count 4.25 10^6/uL (4.0-5.20) Hemoglobin 13.1 g/dL (12.2-16.2) Hematocrit 38.9 % (36.0-46.0) Mean Corpuscular Volume 91.5 fL (80.0-100.0) Mean Corpuscular Hemoglobin 30.8 pg (28.0-32.0) Mean Corpuscular Hemoglobin Concent 33.6 g/dL (32.0-36.0) Red Cell Distribution Width 14.6 % (11.8-14.3) Platelet Count 245 10^3/uL (140-450) Mean Platelet Volume 7.4 fL (6.9-10.8) Neutrophils (%) (Auto) 69.1 % (37.0-80.0) Lymphocytes (%) (Auto) 22.9 % (10.0-50.0) Monocytes (%) (Auto) 7.3 % (0.0-12.0) Eosinophils (%) (Auto) 0.5 % (0.0-7.0) Basophils (%) (Auto) 0.2 % (0.0-2.0) Neutrophils # (Auto) 4.1 10 ^3/uL (1.6-8.6) Lymphocytes # (Auto) 1.4 10 ^3/uL (0.4-5.4) Monocytes # (Auto) 0.4 10 ^3/uL (0-1.3) Eosinophils # (Auto) 0 10 ^3/uL (0-0.8) Basophils # (Auto) 0 10 ^3/uL (0-0.2) Nucleated Red Blood Cells 0.1 % Sodium Level 140 mmol/L (136-145) Potassium Level 3.5 mmol/L (3.5-5.1) Chloride Level 99 mmol/L (98-107) Carbon Dioxide Level 34 mmol/L (20-31) Anion Gap 7 (5-15) Blood Urea Nitrogen 11 mg/dL (9-23) Creatinine 0.87 mg/dL (0.550-1.02) Glomerular Filtration Rate Calc 78 mL/min (>90) BUN/Creatinine Ratio 12.6 (10.0-20.0) Serum Glucose 93 mg/dL (74-106) Calcium Level 9.8 mg/dL (8.7-10.4) Influenza Type A Antigen Negative (Negative) Influenza Type B Antigen Negative (Negative) SARS-CoV-2 Antigen (Rapid) Negative (NEGATIVE) Urine Creatinine 137.05 mg/dL (30.0-125.0) Urine Sodium 162 mmol/L (40-220) Phosphorus Level 3.4 mg/dL (2.4-5.1) Magnesium Level 2.2 mg/dL (1.6-2.6) Troponin I High Sensitivity 28 ng/L (</=34) Other Laboratory Tests 07/18/25 05:51 Brief Hx & Hospital Course: History of Present Illness 55-year-old female with past medical history of chronic dry skin condition, congestive heart failure (CHF), hypertension, transient ischemic attack (TIA), gout, hyperlipidemia, and chronic kidney disease (CKD) since 2006, presents to the ED with complaints of intractable left-sided head pain that began yesterday. She also endorses new onset cough and nasal congestion, and believes she is developing a cold. She denies fever, productive cough, or phlegm. The headache is described as a constant pressure with needle-like pain on the left side of her head. She denies any visual disturbances, weakness, numbness, thunderclap quality, or neck stiffness. Of note, she has been noncompliant with her blood pressure medications over the past two weeks due to running out of prescriptions. Her regimen includes , amlodipine 10 mg/lisinopril, and carvedilol 6.25 mg BID. In the ED, she received Zofran, Dilaudid, and clonidine. Labs revealed normal CBC, potassium of 3.4, creatinine 1.17, glucose 117. CT head was unremarkable. Chest X-ray showed right lower lobe changes concerning for atelectasis vs early pneumonia. Given headache, elevated blood pressure, and signs of respiratory infection, she will be admitted for hypertensive emergency, re-initiation of home antihypertensives, IV pain control, and empiric antibiotics for possible pneumonia. Patient reports regular marijuana use. Course of hospitalization: Further discussion with the patient reveals that she has been out of her home antihypertensives for approximately two months. Patient states that she has recently moved to this area from [place], and does not have a PCP to obtain refills on her medications. Patient has had multiple CT scans of the head, which were negative for any acute pathology. Echocardiogram was performed with normal ejection fraction. Patient's blood pressure has improved dramatically with reinstituting NEVILLE inhibitors, as well as amlodipine and carvedilol. She has been titrated off of oxygen with her saturation noted to be 93% on room air. Patient will be discharged home as instructed to follow up with the discharge Clinic in one week until she has obtain a PCP in this area. She will be provided a new prescription with the two month refill for her home antihypertensives as she has ran out of. Physical examination General: Alert and Oriented x3. No acute distress. Well-nourished. Eyes: EOMI. Anicteric. HENT: Moist mucous membranes. Lungs: Clear to auscultation bilaterally. No accessory muscle use. Cardiovascular: Regular rate and rhythm. No murmur. No JVD. Abdomen: Soft, non-tender and non-distended. No palpable masses. Extremities: No edema. Non-tender. Skin: No rashes or lesions. Warm. Neurologic: No focal neurological deficits. CN II-XII grossly intact, but not individually tested. Psychiatric: Cooperative. Appropriate mood and affect. Total time spent with patient discussing and formulating plan of care: 35 minutes. This medical document was created using an electronic medical record system with [employer] dictation system. Although this document has been carefully reviewed, there may still be some phonetic and typographical errors. These areas are purely typographical due to imperfections of the software programs, and do not reflect any compromise in the patient's medical care. Condition at Discharge: Fair Final Diagnosis/Problems List Hypertensive crisis Medication noncompliance Primary hypertension Cannabinoid use Dyslipidemia Obesity Acute hypoxic respiratory failure Discharge Disposition: Home Discharge Instruct/Medications Diet: Regular, Cardiac 2g Na,low cholest Follow Up/Referral: Discharge Clinic in one week Medications: Continue all home medications as ordered Scheduled Allopurinol (Allopurinol), 100 MG PO DAILY, (Reported) Amlodipine Besylate (Amlodipine Besylate), 10-20 MG PO DAILY, (Reported) Amlodipine Besylate-Olmesartan (Amlodipine/Olmesartan Med 10-20 mg), 1 TAB PO DAILY Aspirin (Aspir-Low), 81 MG PO DAILY, (Reported) Atorvastatin Calcium (Atorvastatin Calcium), 1 TAB PO DAILY, (Reported) Carvedilol (Coreg), 1 TAB PO DAILY, (Reported) Carvedilol (Coreg), 6.25 MG OR BID Chlorthalidone (Chlorthalidone), 25 MG PO DAILY, (Reported) Ergocalciferol (Vitamin D 97144 Unit), 50,000 UNIT PO QWEEKLY, (Reported) Ferrous Sulfate (Ferrous Sulfate), 325 MG PO DAILY, (Reported) Scheduled PRN Acetaminophen (Acetaminophen Childrens), 160 MG PO Q6HP PRN Hydrocodone-Acetaminophen (Hydrocodone Bitartrate/AC 5-325 mg), 1 TAB PO Q6HP PRN Ibuprofen (Motrin Childrens), 100 MG PO Q6HP PRN Ondansetron HCl (Ondansetron Hydrochloride), 2 MG PO Q6HP PRN Miscellaneous Medications Albuterol Sulfate (Albuterol Sulfate Hfa), 200 MCG IN, (Reported) 36 Discharge Statement: "Patient was advised to return to the ER or call 911 if any headaches, dizziness, shortness of breath, chest pain, abdominal pain, bleeding, fevers, or worsening of medical condition. Patient was counseled about treatment plan, medications, possible side effects, patientverbalized understanding. All questions were answered to the best of my ability. This discharge took greater then 30 minutes in planning, reviewing documentation, counseling the patient, and discussing with other team members." ASSESSMENT ASSESSMENT Assessment Date of Service: Jul 18, 2025 Billing Provider: DANI SINGH NP Common Visit Codes: 27022-PFZ/OBS DISCH DAY >30min Procedure Codes: [id number] VALLE NP Jul 18, 2025 14:46
[2025-07-18] MEDS ORDERED: TRAM-626 PO (15:39)
--- NOTE | 2025-07-18 18:42 | DVHSR ---
APPROVED REPORT EXAM: Two-dimensional and M-mode echocardiogram with Doppler and color Doppler. Blood Pressure: 151/90 mmHg INDICATION CHF RISK FACTORS Height: 64, Weight: 188 DIMENSIONS LVDd 4.9 (3.8-5.7cm) LA (2D) 5.3 (1.9-4.0cm) Aortic Root 2.8 (2.0-3.7cm) LVDs 3.5 (2.5-4.0cm) LA (MM) (1.9-4.0cm) Aortic Cusp Exc 1.6 (1.5-2.0cm) EF (%) 55.0 (55-70%) Rt. Atrium 3.9 (1.9-4.0cm) Asc. Aorta cm Mitral Valve Mitral Mitral Stenosis E wave 1.00m/s MV Mean GR. mmHg A wave 1.10m/s MV Peak GR. 115mmHg E/A ratio 0.9 2D MVA cm2 DECEL Time 186ms PRESS 1/2 Time 70ms IVRT ms Dop MVA 3.16cm2 Aortic Valve Aortic Valve Aortic Stenosis V1 1.01m/s AO Mean GR. 8mmHg V2 1.96m/s AO Peak GR. 15mmHg LVOT Diameter 2.1 (1.8-2.4cm) Doppler PHILLIP 1.78cm2 Pulmonic Valve V2 1.08m/s Conclusion Normal left ventricular size and systolic function. Calculated ejection fraction is 55%. There is mild concentric hypertrophy. Diastolic function is normal. Normal right ventricular size and systolic function. RVSP can not be estimated due to insufficient TR Trileaflet aortic valve. No aortic stenosis or aortic regurgitation There is mild mitral regurgitation. There is no mitral stenosis No pericardial effusion Normal inferior vena cava caliber with more than 50% inspiratory collapse. Estimated right atrial pressure is 3 mm Hg Normal aortic root size of 2.8 cm
[2025-07-18] MEDS: ALBUTEROL SULF 2.5 MG/0.5ML(0.5%) NEB SOLN NEB PRN (19:00)
[2025-07-18] MEDS: IPRATROPIUM BROM 0.5 MG/2.5ML INH SOL NEB PRN (19:01)
[2025-07-19] VITALS (8 sets, daily range): BP systolic 130–203; BP diastolic 72–105; PULSE 66–76; RESP 16–20; TEMP 97.3–98.4; O2SAT 90–98
[2025-07-19] MEDS: hydroCHLOROthiazide 25 MG TAB PO SCH (08:51)
[2025-07-19] MEDS ORDERED: LABE100T7 PO (10:33)
[2025-07-19] MEDS: ERGOCALCIFEROL 50,000 UNIT(1.25MG) CAP PO SCH (10:56)
[2025-07-19] MEDS: LABETALOL HCL 200 MG TAB PO SCH (10:57)
[2025-07-19 11:52] LABS: Sodium 140 mmol/L (136-145)
[2025-07-19 11:53] LABS: Anion Gap 10 (5-15)
[2025-07-19 11:54] LABS: Calcium 10.1 mg/dL (8.7-10.4)
[2025-07-19 11:56] LABS: Carbon Dioxide 32 mmol/L (20-31); Chloride 98 mmol/L (98-107); Potassium 3.4 mmol/L (3.5-5.1)
[2025-07-19 11:59] LABS: BUN/Creatinine Ratio 14.3 (10.0-20.0); Blood Urea Nitrogen 14 mg/dL (9-23); Glucose 106 mg/dL (74-106)
--- NOTE | 2025-07-19 15:07 | DVHPN2 ---
Subjective Patient denies any symptoms at this time. Reports that her previous nausea has resolved. Reviewed: Care Plan, H&P, Labs, Medications, Previous Orders, Radiology Changes from previous H/P or p: No Changes Eyes: No Pain, No Vision change, No Conjunctivae inflammation, No Eyelid inflammation, No Other, No Redness ENT: No Ear pain, No Ear discharge, No Nose pain, No Nose discharge, No Nose congestion, No Mouth pain, No Mouth swelling, No Throat pain, No Throat swelling, No Other Cardiovascular: No Chest Pain, No Palpitations, No Orthopnea, No Paroxysmal Noc. Dyspnea, No Edema, No Lt Headedness, No Other Respiratory: No Cough, No Dry, No Shortness of breath, No SOB with excertion, No Wheezing, No Hemoptysis, No Pleuritic Pain, No Sputum, No Other Gastrointestinal: No Nausea, No Vomiting, No Abdominal Pain, No Diarrhea, No Constipation, No Melena, No Hematochezia, No Other Genitourinary: No Dysuria, No Frequency, No Incontinence, No Hematuria, No Retention, No Other Musculoskeletal: No other, No neck pain, No shoulder pain, No arm pain, No back pain, No hand pain, No leg pain, No foot pain Skin: No Rash, No Lesions, No Jaundice, No Bruising, No Other Objective Vitals Vital Signs Date Time Temp Pulse Resp B/P (MAP) Pulse Ox O2 Delivery O2 Flow Rate FiO2 07/19/25 11:57 66 121/76 07/19/25 09:00 98.3 20 96 98.3 07/18/25 20:00 Room Air* 0 21 Intake/Output Intake and Output 07/19/25 07:00 Intake Total 1725 ml Output Total 3 ml Balance 1722 ml Intake Oral 1425 ml IV Total 300 ml Output Urine Total 3 ml # Voids 2 General Appearance: Alert, Oriented X3, Cooperative, No acute distress HEENT: Atraumatic, PERRLA, EOMI, Mucous membr. moist/pink Lungs: Clear to auscultation, Normal air movement Cardiovascular: Regular rate, Normal S1, Normal S2, No murmurs, Gallops, Rubs Abdomen: Normal bowel sounds, Soft, No tenderness Neuro: Cranial nerves 3-12 NL Skin: Dry, Intact Psych/Mental Status: Mental status NL, Mood NL Medications Current Medications Medications Dose Ordered Sig/Danny Route Start Time Stop Time Status Last Admin Dose Admin Amlodipine Besylate 10 mg DAILY PO 07/16/25 10:00 07/19/25 08:50 10 MG Aspirin 81 mg DAILY PO 07/16/25 10:00 07/19/25 10:56 81 MG Atorvastatin Calcium 20 mg DAILY PO 07/16/25 10:00 07/19/25 10:56 20 MG Ergocalciferol 50,000 unit QWEEKLY PO 07/15/25 15:00 07/19/25 10:56 50,000 UNIT Ferrous Sulfate 325 mg DAILY PO 07/16/25 10:00 07/19/25 10:56 325 MG Ceftriaxone Sodium 50 ml @ 100 mls/hr DAILY@09 IV 07/16/25 09:00 07/19/25 08:49 100 MLS/HR Azithromycin 250 ml @ 125 mls/hr DAILY IV 07/16/25 10:00 07/19/25 10:55 125 MLS/HR Albuterol 2.5 mg Q6HPRN PRN NEB 07/15/25 14:45 07/18/25 19:00 2.5 MG Ipratropium [place] 0.5 mg Q4HPRN PRN NEB 07/15/25 14:45 07/18/25 19:01 0.5 MG Hydralazine HCl 10 mg Q6HP PRN IV 07/15/25 15:00 Hold 07/19/25 06:21 10 MG Nitroglycerin 0.4 mg Q5MINP PRN SL 07/15/25 18:00 Morphine Sulfate 2 mg Q30M PRN IV 07/15/25 18:00 Ondansetron HCl 4 mg Q6HPRN PRN IV 07/17/25 09:15 07/19/25 09:10 4 MG Losartan Potassium 100 mg DAILY PO 07/17/25 12:00 07/19/25 08:52 100 MG Ketorolac Tromethamine 30 mg Q8HPRN PRN IV 07/17/25 12:30 07/22/25 12:29 07/19/25 08:52 30 MG Acetaminophen/ Codeine Phosphate 1 tab Q6HP PRN PO 07/17/25 12:30 07/18/25 16:31 1 TAB Hydrochlorothiazide 50 mg DAILY PO 07/19/25 10:00 07/19/25 08:51 50 MG Hydralazine HCl 50 mg Q8HR PRN PO 07/19/25 10:30 Labetalol HCl 100 mg Q12HR PO 07/19/25 10:45 07/19/25 10:57 100 MG Laboratory Results Laboratory Tests 07/18/25 05:51 07/19/25 11:19 Chemistry Test 07/19/25 11:19 Calcium Level 10.1 mg/dL (8.7-10.4) Urinalysis Test 07/15/25 16:57 Urine Creatinine 137.05 mg/dL (30.0-125.0) H Urine Sodium 162 mmol/L (40-220) Labs and/or images reviewed: Labs reviewed by me, Image(s) reviewed by me Assessment/Plan Assessment/Plan Impression: -hypertensive crisis -obesity -chronic diastolic heart failure -marijuana abuse Plan: -patient discharged yesterday, had refractory hypertension. Continues to be hypertensive this a.m. with systolic blood pressure reaching 200 mmhg. Patient's carvedilol stopped, substituted with labetalol. Patient's blood pressure now better controlled. Patient is now asymptomatic. Plans for discharge after potassium replete and maintained blood pressure control this evening. Discussed with primary nurse Gideon. Total time spent with patient discussing and formulating plan of care: 35 minutes. This medical document was created using an electronic medical record system with [employer] dictation system. Although this document has been carefully reviewed, there may still be some phonetic and typographical errors. These areas are purely typographical due to imperfections of the software programs, and do not reflect any compromise in the patient's medical care. Plan discussed with: Patient, Other (RN) My Orders Orders - DANI SINGH [employer] Procedure Category Date Status Time Hydrochlorothiazide PHA 07/19/25 In Process Tablet (Hydrochlorot 10:00 Hydralazine Hcl PHA 07/19/25 In Process Tablet (Apresoline 10:30 Renin Activity And LAB 07/19/25 In Process Aldosterone 10:29 Labetalol Hcl Tablet PHA 07/19/25 In Process (Normodyne Tablet) 10:45 Discharge DISCHARGE 07/19/25 Transmitted 15:01 Potassium Er Tablet PHA 07/19/25 Transmitted (Klor-Con Tablet) 15:15 Date of Service: Jul 19, 2025 Billing Provider: DANI SINGH [employer] Common Visit Codes: [id number] INP/OBS CARE(HIGH) DANI SINGH NP Jul 19, 2025 15:07
[2025-07-19] MEDS: POTASSIUM CHL 10 Meq TABLET PO ONE (15:28)
== END 2025-07-19 17:45 | disposition home or self-care (01) | DRG 199 ==
LOC: ER 10:25 → OVERFLOW 17:53 → TELE-EAST 07-16 22:45
PROVIDERS: ADMIT Nurse Practitioner Acute Care; ATTEND Nurse Practitioner Acute Care
DX: I16.1 Hypertensive emergency (principal); J96.01 Acute respiratory failure with hypoxia; I50.32 Chronic diastolic (congestive) heart failure; N18.9 Chronic kidney disease, unspecified; E66.9 Obesity, unspecified; F12.10 Cannabis abuse, uncomplicated; I13.0 Hypertensive heart and chronic kidney disease with heart failure and stage 1 through stage 4 chronic kidney disease, or unspecified chronic kidney disease; Z20.822 Contact with and (suspected) exposure to COVID-19; E78.5 Hyperlipidemia, unspecified; M10.9 Gout, unspecified; B02.29 Other postherpetic nervous system involvement; Z79.899 Other long term (current) drug therapy; Z86.73 Personal history of transient ischemic attack (TIA), and cerebral infarction without residual deficits; Z91.148 Patient's other noncompliance with medication regimen for other reason; Z68.33 Body mass index [BMI] 33.0-33.9, adult
CPT/HCPCS: 36415; 70450; 71046; 80048; 82088; 82570; 83735; 84100; 84244; 84300; 84484; 85025; 87426; 87804; 93005; 93306; 94640; 96365; 96375; 99291; 99292; G0378; J1885; J2405